=== PATIENT | female | born 1980 | race Asian ===

== ENCOUNTER 2022-11-21 07:49 | Emergency (ER) | payer OTHER ==
[~2022-11-21] VITALS: Ht 170.2 cm; Wt 90.9 kg
[2022-11-21 07:55] VITALS: BP 141/86; PULSE 97; RESP 18; TEMP 97.6; O2SAT 97
== END 2022-11-21 10:30 | disposition home or self-care (01) ==
LOC: ER 07:49
DX: Z77.21 Contact with and (suspected) exposure to potentially hazardous body fluids (principal); W46.1XXA Contact with contaminated hypodermic needle, initial encounter; Y93.89 Activity, other specified; Y92.89 Other specified places as the place of occurrence of the external cause; Y99.8 Other external cause status
CPT/HCPCS: 99281

== ENCOUNTER 2023-01-10 09:06 | Emergency (ER) | payer BC, OTHER ==
[~2023-01-10] VITALS: Ht 170.2 cm; Wt 89.8 kg
[2023-01-10 09:09] VITALS: BP 142/93; PULSE 89; RESP 18; O2SAT 97
[2023-01-10 11:25] VITALS: TEMP 97
== END 2023-01-10 11:28 | disposition home or self-care (01) ==
LOC: ER 09:07
DX: U07.1 COVID-19 (principal)
CPT/HCPCS: 99282

== ENCOUNTER → 2023-08-26 | Emergency (ER) | payer BC ==
[~2023-08-26] VITALS: Ht 170.2 cm; Wt 67.0 kg
[~2023-08-26] MED LIST: ONDA4TAB12 PO
[2023-08-26 07:38] VITALS: BP 111/71; PULSE 87; RESP 16; TEMP 98.7; O2SAT 98
[2023-08-26] MEDS: ondansetron 4mg rapidly disintigrating tab PO ONE (08:21)
[2023-08-26] MEDS: dicyclomine 10 MG capsule PO ONE (08:22)
[2023-08-26] MEDS: loperamide 2mg capsule PO ONE (08:22)
== END | disposition home or self-care (01) ==
LOC: ER 07:35
DX: R19.7 Diarrhea, unspecified (principal); R11.0 Nausea; Z79.899 Other long term (current) drug therapy
CPT/HCPCS: 99284

== ENCOUNTER 2024-09-05 09:33 | Emergency (ER) | payer BC ==
[~2024-09-05] VITALS: Ht 170.2 cm; Wt 70.0 kg
[~2024-09-05 09:33] MED LIST changes: +ONDA-243 PO; -ONDA4TAB12 PO
[2024-09-05 09:38] VITALS: BP 114/72; PULSE 69; TEMP 98.6; O2SAT 99
[2024-09-05] MEDS ORDERED: ketorolac trometh 15mg/ml vial 15 MG/ML ML IM ONE (10:00)
--- NOTE | 2024-09-05 10:04 | Physician Documentation ---
History of Present Illness ~ Chief Complaint: Neck pain Stated Complaint: NECK PAIN Time Seen by MD: 09:52 HPI 43-YEAR-OLD FEMALE PRESENTS TO THE ED WITH A COMPLAINT OF NECK STRAIN OR SPASM. STATES SHE IS GOING TO THE [facility] LATER TODAY BUT WAS KEPT UP ALL NIGHT DUE TO THE PAIN.. HE HAS ANY NUMBNESS OR TINGLING FEVERS Medication Reconciliation Allergies: Coded Allergies: No Known Allergies (Unverified , 01/10/23) Scheduled PRN ONDANSETRON ODT 4mg tablet (Ondansetron Odt), 1 TABLET PO Q6H PRN for nausea/vomiting Past Medical History Past Medical History: No Pertinent History Past Surgical History: noncontributory Alcohol Use: None Drug Use: none Lives In: Home Occupation: employed Review of Systems All Other Systems at this time: Reviewed and Negative ROS As stated above in the HPI, otherwise all systems are reviewed and negative. Physical Exam Vital Signs: Temperature: 98.6, Source: Oral, Heart Rate: 69, Respiratory Rate: 16, BP: 114/72, Pulse Oximetry: 99, Weight: 70.000 Oxygen Flow Rate: 0 Physical Exam General: Alert, no apparent distress. Neck: Full range of motion. TENDER TO LEFT TRAPEZIUS, PAIN WITH LATERAL NECK FLEXION Psychiatric: Normal mood and affect. Skin: Normal color, warm and dry. No edema, no ecchymosis. Progress Results/Orders Results/Orders Completed Orders - YONI CAI NP Ketorolac Trometh 15mg/Ml Vial (Toradol (09/05/24 10:00) Ketorolac Trometh 30mg/Ml Vial (Toradol (09/05/24 10:00) Morphine 4mg/Ml Inj. (Morphine Inj.) (09/05/24 10:00) Ondansetron Disint. Tablet (Zofran Odt T (09/05/24 10:00) Medications Received in ER Medications (Trade) Dose Ordered Sig/Gabriela Route PRN Reason Start Time Stop Time Status Last Admin Dose Admin (Toradol inj. 30mg/ml) 30 mg ONCE ONCE IM 09/05/24 10:00 09/05/24 10:01 DC 09/05/24 10:16 30 MG (morphine inj.) 4 mg ONCE ONCE IM 09/05/24 10:00 09/05/24 10:01 DC 09/05/24 10:17 4 MG (Zofran ODT tablet) 4 mg ONCE ONCE PO 09/05/24 10:00 09/05/24 10:01 DC 09/05/24 10:17 4 MG Vital Signs 09/05/24 09/05/24 09/05/24 09/05/24 09:38 10:16 10:17 10:33 Temp 98.6 Pulse 69 Resp 16 16 16 16 B/P (MAP) 114/72 Pulse Ox 99 O2 Flow Rate 0 Medical Decision Making Findings PATIENT PRESENTS WITH A ALL THE CLINICAL INDICATIONS FOR STRESS RELATED NECK SPASM OR STRAIN. TREATING HER FOR PAIN AND INFLAMMATION WHILE IN THE ED HE ALSO WAS COMPLAINING OF NAUSEA INITIALLY. AFTER RECEIVING MEDICATIONS SHE REPORTED OVERALL IMPROVED SYMPTOMS Differential Dx:Considerations: Include: Cervical muscle spasm, Discitis, DJD, Meningitis, Thyroiditis, Torticollis, Vertebral artery dissect., Other Departure Disposition: HOME / SELF CARE / HOMELESS Impression: Primary Impression: Neck pain Additional Impression: Strain of neck muscle Condition: Improved Discharge Instructions: Cervical Sprain Referrals: NO PRIMARY CARE PROVIDER (PCP) Signature Scribe Signature: patel Attestation: Scribed for Yoni Cai Data Entry Manager by Yoni Whitley NP . 09/05/24 13:42 YONI CAI EQUINE INTERN Sep 05, 2024 10:04
[2024-09-05] MEDS: ketorolac trometh 30MG/ML vial 30 MG/ML VIAL IM ONE (10:16)
[2024-09-05] MEDS: ondansetron 4mg rapidly disintigrating tab PO ONE (10:17)
[2024-09-05] MEDS: morphine 4 MG/ML inj SYRINge IM ONE (10:17)
[2024-09-05 10:33] VITALS: RESP 16
== END 2024-09-05 10:36 | disposition home or self-care (01) ==
LOC: ER 09:34
DX: S16.1XXA Strain of muscle, fascia and tendon at neck level, initial encounter (principal); R50.9 Fever, unspecified; X58.XXXA Exposure to other specified factors, initial encounter; Y93.89 Activity, other specified; Y92.89 Other specified places as the place of occurrence of the external cause; Y99.8 Other external cause status
CPT/HCPCS: 96372; 99284; J1885; J2270